=== PATIENT | male | born 1960 | race Caucasian/White ===

== ENCOUNTER 2018-07-24 08:36 | Emergency (ER) | payer MEDICARE ==
[2018-07-24 09:00] LABS: #Basophils 0.1 thou/uL (0.0-0.2); #Eosinphils 0.1 thou/uL (0.0-0.7); #Lymphocytes 1.6 thou/uL (1.20-3.40); #Neutrophils 10.9 thou/uL (1.40-6.50); %Basophils 0.5 % (0.0-1.0); %Eosinophils 0.6 % (0.0-10.0); %Lymphocytes 11.5 % (21.0-51.0); %Monocytes 7.1 % (0.0-10.0); %Neutrophils 80.3 % (42.0-75.0); Hemoglobin 12.4 g/dL (14.0-18.0); Mean Corpuscular HGB CONC 33.4 g/dL (32.0-36.0); Mean Corpuscular Hemoglobin 29.7 pg (27.0-31.0); Mean Platelet Volume 9.7 fL (7.4-10.4); Platelet Count 167 thou/uL (130-400); RBC Distribution Width 12.4 % (11.5-14.5); Red Blood Cell (RBC) Count 4.18 mill/uL (4.70-6.10); White Blood Cell (WBC) Count 13.6 thou/uL (4.8-10.8)
[2018-07-24 09:15] LABS: ALT (SGPT) Less than 7 U/L (8-55); AST (SGOT) 10 U/L (5-34); Albumin 3.5 g/dL (3.5-5.0); Alkaline Phosphatase 74 U/L (40-150); Anion Gap 15 mmol/L (10-20); BUN (Urea Nitrogen) 32 mg/dL (8.4-25.7); Bilirubin, Total 0.6 mg/dL (0.2-1.2); Calc. Creatinine Clearance 0 mL/min (70-130); Calcium 8.9 mg/dL (7.8-10.44); Carbon Dioxide 25 mmol/L (22-29); Chloride 100 mmol/L (98-107); Estimated GFR-MDRD 56; Globulin 3.7 g/dL (2.4-3.5); Glucose 409 mg/dL (70-105); Potassium 3.8 mmol/L (3.5-5.1); Protein, Total 7.2 g/dL (6.0-8.3); Sodium 136 mmol/L (136-145)
[2018-07-24 09:16] LABS: CKMB 0.6 ng/mL (0-6.6); Troponin I Less than 0.010 ng/mL (< 0.028)
[2018-07-24] MEDS ORDERED: Sodium Chloride 0.9% 100 ML ONE (09:21)
[2018-07-24] MEDS ORDERED: Piperacillin/Tazobactam 3.375 GM VIAL ONE (09:21)
[2018-07-24] MEDS ORDERED: Albuterol Sulfate 2.5 mg/3 ml Neb ONE (09:22)
--- NOTE | 2018-07-24 18:45 | RAD ---
CHEST 2 VIEWS: Date: 07/24/18 PA and lateral views are submitted with no prior films available for comparison. There is an opacity in the left lung, probably in the superior segment of the left lower lobe. This i s most likely pneumonia, but it should be followed to complete resolution as it has a rounded appeara nce on the lateral view. The right lung is clear. There are no effusions. The heart size is normal. IMPRESSION: Opacity in the superior segment of the left lower lobe, presumably pneumonia. This must be followed w ith subsequent films to complete resolution to ensure that it is only an infection. CODE T. POS: HOME
== END 2018-07-24 10:01 | disposition home or self-care (01) ==
LOC: BURERS 08:36
DX: J18.9 Pneumonia, unspecified organism (principal); E11.9 Type 2 diabetes mellitus without complications; E78.5 Hyperlipidemia, unspecified; I11.0 Hypertensive heart disease with heart failure; I50.9 Heart failure, unspecified; G20 Parkinson's disease; Z79.899 Other long term (current) drug therapy
CPT/HCPCS: 36415; 71046; 80053; 82553; 83605; 84484; 85025; 87040; 94640; 94760; 96365; J2543; J7050; J7611; J7620

== ENCOUNTER 2018-08-14 11:50 | Outpatient (CLI) | payer MEDICARE ==
--- NOTE | 2018-08-14 18:42 | RAD ---
CHEST TWO VIEWS: 08/14/2018 COMPARISON: 07/24/2018 FINDINGS: The infiltrate in the superior segment of the right lower lobe is clearing. There is still some paige r residual present, but it has significantly decreased in size. I would recommend one final follow-u p film, perhaps in about one month. No new infiltrates are seen. The heart is normal in size. The right lung is clear. IMPRESSION: Clearing pneumonia. One month followup suggested. POS: HOME
== END 2018-08-14 11:51 | disposition home or self-care (01) ==
LOC: BURRAD 11:50
PROVIDERS: ATTEND Physician Assistant
DX: J69.0 Pneumonitis due to inhalation of food and vomit (principal)
CPT/HCPCS: 71046

== ENCOUNTER 2020-09-08 14:24 | Outpatient (CLI) | payer MEDICARE ==
--- NOTE | 2020-09-08 16:54 | RAD ---
CHTES TWO VIEWS: Date: 09-08-2020 Comparison: 08-14-18 FINDINGS: The heart is upper normal in size but not significantly changed over the interval. There is a very sl ight increase in lung markings overall in the interval, however, there is no lobar pneumonia or other focal infiltrate that would be typical of aspiration. No effusions are seen. The mediastinum showed no acute changes. Degenerative changes are present in the spine. IMPRESSION: Minimal diffuse increase in lung markings over time but no focal pulmonary findings. POS: HOME
== END 2020-09-08 14:25 | disposition home or self-care (01) ==
LOC: BURRAD 14:24
PROVIDERS: ATTEND Physician Assistant
DX: T17.908A Unspecified foreign body in respiratory tract, part unspecified causing other injury, initial encounter (principal); R91.8 Other nonspecific abnormal finding of lung field
CPT/HCPCS: 71046

== ENCOUNTER 2020-12-30 10:34 | Emergency (ER) | payer MEDICARE | END 2020-12-30 11:26 | disposition home or self-care (01) | LOC: BURERS 10:34 | DX: I11.0 Hypertensive heart disease with heart failure (principal); I50.9 Heart failure, unspecified; E11.9 Type 2 diabetes mellitus without complications; E78.5 Hyperlipidemia, unspecified; E78.00 Pure hypercholesterolemia, unspecified; G20 Parkinson's disease; Z79.4 Long term (current) use of insulin; Z79.899 Other long term (current) drug therapy | CPT/HCPCS: 99283 ==